=== PATIENT | female | born 1950 | race Caucasian/White ===

== ENCOUNTER 2022-01-19 11:32 | Emergency (ER) | payer SELFPAY ==
[2022-01-19 11:41] VITALS: BP 125/80; PULSE 96; RESP 18; TEMP 98.5
--- NOTE | 2022-01-19 12:22 | ED ---
URI HPI - General Chief Complaint: Upper Respiratory Infection Stated Complaint: Cough Time Seen by Provider: 01/19/22 11:50 Source: patient, RN notes reviewed Mode of arrival: ambulatory Limitations: no limitations - History of Present Illness Initial Comments: CC 71-year-old female who presents to the emergency department for upper respiratory infection. For 4 days, she has had a cough and congestion. Denies any shortness of breath or fevers. Sinus sick as well, however his symptoms are more severe. Patient states that the cough is keeping her awake at night, and she really just wants medication to help with this. MD Complaint: cough Onset/Timin -: days(s) - Related Data Previous Rx's Medication Instructions Recorded Benzonatate [Tessalon Perles] 100 mg PO TID PRN #30 capsule 01/19/22 CHLORPHEN-HYDROcod 8-10mg/5ml 5 ml PO Q12HR PRN #60 ml 01/19/22 [Tussionex] Allergies Allergy/AdvReac Type Severity Reaction Status Date / Time Sulfa (Sulfonamide Allergy Rash/Hives Verified 01/19/22 11:37 Antibiotics) Review of Systems ROS Statement: Those systems with pertinent positive or pertinent negative responses have been documented in the HPI. ROS Other: All systems not noted in ROS Statement are negative. Constitutional: Denies: fever, chills ENT: Reports: congestion. Denies: ear pain, throat pain Respiratory: Reports: cough. Denies: dyspnea Cardiovascular: Denies: chest pain Gastrointestinal: Denies: abdominal pain, nausea, vomiting, diarrhea Genitourinary: Denies: urgency, dysuria Skin: Denies: rash Neurological: Denies: headache Past Medical History Past Medical History: No Reported History History of Any Multi-Drug Resistant Organisms: None Reported Past Surgical History: Joint Replacement Additional Past Surgical History / Comment(s): B shoulder Past Psychological History: No Psychological Hx Reported Smoking Status: Never smoker Past Alcohol Use History: Occasional Past Drug Use History: None Reported General Exam Limitations: no limitations Course Vital Signs 01/19/22 11:38 Temperature 98.5 F Pulse Rate 96 Respiratory 18 Rate Blood Pressure 125/80 O2 Sat by Pulse 99 Oximetry Medical Decision Making - Medical Decision Making This is a 22-year-old female who presents emergency department for an upper respiratory infection. Cepheid testing obtained, the patient tested positive for influenza A. The patient is outside of the window where she can be treated with Tamiflu. Patient given a prescription for Tessalon Perles and Tussionex, to help with her coughing. As the patient only take Tussionex at night, as it will cause drowsiness. She can take Tessalon pearls throughout the day as needed for coughing. She is otherwise advised to continue symptomatic management, such as [id number]-[id number] cold medicine, oral fluids, hydration. Imaging was not obtained, as the patient's lungs were clear to auscultation. Return precautions reviewed in depth, the patient is instructed to return to the emergency department with any new, worsening, or concerning symptoms. Patient verbalized understanding. This case was discussed in detail with the attending ED physician. Presentation, findings, and treatment plan discussed in detail as well. - Lab Data Lab Results 01/19/22 Range/Units 12:21 Influenza Type A (PCR) Detected A (Not Detectd) Influenza Type B (PCR) Not Detected (Not Detectd) RSV (PCR) Not Detected (Not Detectd) SARS-CoV-2 (PCR) Not Detected (Not Detectd) Disposition Clinical Impression: Influenza A Disposition: HOME SELF-CARE Instructions (If sedation given, give patient instructions): Influenza (ED) Additional Instructions: Return to the emergency department if your symptoms worsen, including but not limited to, the development of unresolving fevers, shortness of breath, or an uncontrollable cough. Only take the Tussionex at night until you know how it will affect you, and avoid driving or operating machinery while taking this. Follow up with your PCP in 1-2 days. Prescriptions: Benzonatate [Tessalon Perles] 100 mg PO TID PRN #30 capsule PRN Reason: Cough CHLORPHEN-HYDROcod 8-10mg/5ml [Tussionex] 5 ml PO Q12HR PRN #60 ml PRN Reason: Cough Is patient prescribed a controlled substance at d/c from ED?: Yes If prescribed controlled substance>3 days was MAPS reviewed?: Yes Referrals: Sybil Joseph MD [Primary Care Provider] - 1-2 days
[2022-01-19 13:08] LABS: Influenza A Detected (Not Detectd); Influenza B Not Detected (Not Detectd)
== END 2022-01-19 13:41 | disposition home or self-care (01) ==
LOC: EC 11:32
DX: J10.1 Influenza due to other identified influenza virus with other respiratory manifestations (principal); Z20.822 Contact with and (suspected) exposure to COVID-19
CPT/HCPCS: 87636; 99283

== ENCOUNTER 2023-06-01 06:37 | Emergency (ER) | payer MEDICARE, OTHER ==
[2023-06-01 06:49] VITALS: BP 125/73; PULSE 80; RESP 16; TEMP 98.1
[2023-06-01] MEDS ORDERED: methylPREDNISolone ACETATE 80 MG/ML 1 ML VIAL IM STA (07:22)
--- NOTE | 2023-06-01 07:32 | ED ---
Skin/Abscess/FB HPI - General Chief complaint: Skin/Abscess/Foreign Body Stated complaint: Facial Swelling and redness Time Seen by Provider: 06/01/23 07:01 Source: patient, RN notes reviewed Mode of arrival: ambulatory Limitations: no limitations - History of Present Illness Initial comments: Patient is a pleasant 73-year-old female presenting to the emergency room with complaints of redness and mild swelling to her face which began shortly after wiping sweat off of her face with a paper towel was she was outside yesterday and worsened after the application of Tinactin to her face. She reports a severe burning sensation after applying the Tinactin and an increase in swelling particularly to the left lower cheek region. She denies any difficulty in breathing, chest pain, scratchy/she throat, rashes to any other location, fevers or chills. She has no significant past medical history and does not take any medications on a regular basis. - Related Data Previous Rx's Medication Instructions Recorded Benzonatate [Tessalon Perles] 100 mg PO TID PRN #30 capsule 01/19/22 CHLORPHEN-HYDROcod 8-10mg/5ml 5 ml PO Q12HR PRN #60 ml 01/19/22 [Tussionex] Allergies Allergy/AdvReac Type Severity Reaction Status Date / Time Sulfa (Sulfonamide Allergy Rash/Hives Verified 01/19/22 11:37 Antibiotics) Review of Systems ROS Statement: Those systems with pertinent positive or pertinent negative responses have been documented in the HPI. ROS Other: All systems not noted in ROS Statement are negative. Past Medical History Past Medical History: No Reported History History of Any Multi-Drug Resistant Organisms: None Reported Past Surgical History: Joint Replacement Additional Past Surgical History / Comment(s): B shoulder Past Psychological History: No Psychological Hx Reported Smoking Status: Never smoker Past Alcohol Use History: Occasional Past Drug Use History: None Reported General Exam Limitations: no limitations General appearance: alert, in no apparent distress Head exam: Present: atraumatic, normocephalic Eye exam: Present: normal appearance, PERRL, EOMI. Absent: scleral icterus, conjunctival injection, nystagmus, periorbital swelling ENT exam: Present: other (Bilateral cheeks with diffuse erythema and radiating downwards towards outer aspects of mouth without involvement of the oral mucosa or lips. No vesicles or distinct lesions. Mild swelling of the lower cheek line on the left noted.) Expanded Ear exam: Present: normal external inspection Mouth exam: Present: normal external inspection Teeth exam: Present: normal inspection Throat exam: normal inspection Neck exam: Present: normal inspection, full ROM. Absent: tenderness, lymphadenopathy Respiratory exam: Absent: respiratory distress, accessory muscle use Cardiovascular Exam: Present: regular rate Extremities exam: Present: normal inspection. Absent: pedal edema, joint swelling Back exam: Present: normal inspection, full ROM Neurological exam: Present: alert, oriented X3, CN II-XII intact Psychiatric exam: Present: normal affect, normal mood Skin exam: Present: warm, dry, intact, erythema (As above) Course Vital Signs 06/01/23 06:45 Temperature 98.1 F Pulse Rate 80 Respiratory 16 Rate Blood Pressure 125/73 O2 Sat by Pulse 98 Oximetry Medical Decision Making - Medical Decision Making Was pt. sent in by a medical professional or institution (, PA, FEED WEIGHER, urgent care, hospital, or [facility]...) When possible be specific @ -No Did you speak to anyone other than the patient for history (EMS, parent, family, police, friend...)? What history was obtained from this source @ -No Did you review nursing and triage notes (agree or disagree)? Why? @ -I reviewed and agree with nursing and triage notes Were old charts reviewed (outside hosp., previous admission, EMS record, old EKG, old radiological studies, urgent care reports/EKG's, [facility] records)? Report findings @ -No old charts were reviewed Differential Diagnosis (chest pain, altered mental status, abdominal pain women, abdominal pain men, vaginal bleeding, weakness, fever, dyspnea, syncope, headache, dizziness, GI bleed, back pain, seizure, CVA, palpatations, mental health, musculoskeletal)? @ -Differential Rash: Contact dermatitis, allergic reaction, petechial rash, herpes zoster, urticaria, MRSA infection, cellulitis, erythema multiforme a, tinea corpus, impetigo, and, insect bite, atopic dermatitis, this is not meant to be an all-inclusive list. EKG interpreted by me (3pts min.). @ -None done X-rays interpreted by me (1pt min.). @ -None done CT interpreted by me (1pt min.). @ -None done U/S interpreted by me (1pt. min.). @ -None done What testing was considered but not performed or refused? (CT, X-rays, U/S, labs)? Why? @ -None What meds were considered but not given or refused? Why? @ -None Did you discuss the management of the patient with other professionals (professionals i.e. , PA, FEED WEIGHER, lab, RT, psych nurse, certified social workers in health care, cashier gambling, teacher, strike warfare/missile systems officer, geriatric case manager)? Give summary @ -No Was smoking cessation discussed for >3mins.? @ -No Was critical care preformed (if so, how long)? @ -No Were there social determinants of health that impacted care today? How? (Homelessness, low income, unemployed, alcoholism, drug addiction, transportation, low edu. Level, literacy, decrease access to med. care, shelter, rehab)? @ -No Was there de-escalation of care discussed even if they declined (Discuss DNR or withdrawal of care, Hospice)? DNR status @ -No What co-morbidities impacted this encounter? (DM, HTN, Smoking, COPD, CAD, Cancer, CVA, ARF, Chemo, Hep., AIDS, mental health diagnosis, sleep apnea, morbid obesity)? @ -None Was patient admitted / discharged? Hospital course, mention meds given and route, prescriptions, significant lab abnormalities, going to OR and other pertinent info. @ -73-year-old female presenting to the emergency room with rash to bilateral cheeks radiating downwards towards mouth but not involving mouth without any associated symptoms. Worsen after tonight and application. Symptoms consistent with contact dermatitis along with potential ALLERGIC dermatitis due to tenonectomy will give dose of Depo-Medrol now and advised to utilize glmn-ugy-bkicibx hydrocortisone cream and keep skin clean and dry. No indication for any diagnostic imaging, laboratory studies or further medication administration. No indication for any continued medication at home with the exception of tcdr-tqf-uxhelhq topical application of hydrocortisone cream as above and as needed. Questions and concerns answered. Return parameters to the emergency room discussed at length. Will discharge home in stable condition after Depo-Medrol injection advising [id number]-[id number] treatment for contact dermatitis to the face and follow-up with primary care provider. Undiagnosed new problem with uncertain prognosis? @ -No Drug Therapy requiring intensive monitoring for toxicity (Heparin, Nitro, Insulin, Cardizem)? @ -No Were any procedures done? @ -No Diagnosis/symptom? @ -Contact dermatitis Acute, or Chronic, or Acute on Chronic? @ -Acute Uncomplicated (without systemic symptoms) or Complicated (systemic symptoms)? @ -Uncomplicated Side effects of treatment? @ -No Exacerbation, Progression, or Severe Exacerbation? @ -No Poses a threat to life or bodily function? How? (Chest pain, [place], [place], pneumonia, PE, COPD, DKA, ARF, appy, cholecystitis, CVA, Diverticulitis, Homicidal, Suicidal, threat to staff... and all critical care pts) @ -No Case discussed with Dr. Diaz Disposition Clinical Impression: Contact dermatitis Disposition: HOME SELF-CARE Condition: Stable Instructions (If sedation given, give patient instructions): Contact Dermatitis (ED) Additional Instructions: May utilize neze-xwc-ftqhhws hydrocortisone cream to rash as needed sparingly. Gentle soap and hot water to wash skin and keep dry. Please follow-up with your primary care provider. Please return to the emergency Department if symptoms worsen. Is patient prescribed a controlled substance at d/c from ED?: No Referrals: None,Stated [Primary Care Provider] - 1-2 days Time of Disposition: 07:33
== END 2023-06-01 07:55 | disposition home or self-care (01) ==
LOC: EC 06:37
DX: L25.9 Unspecified contact dermatitis, unspecified cause (principal); Z88.2 Allergy status to sulfonamides
CPT/HCPCS: 99283; 96372; J1040

== ENCOUNTER 2023-06-05 07:01 | Emergency (ER) | payer MEDICARE ==
[2023-06-05 07:15] VITALS: TEMP 98
[2023-06-05] MEDS ORDERED: predniSONE 20 MG TAB PO STA (07:57)
[2023-06-05] MEDS ORDERED: hydrOXYzine HCL 25 MG TAB PO STA (07:57)
--- NOTE | 2023-06-05 08:02 | ED ---
General Adult HPI - General Chief complaint: Skin/Abscess/Foreign Body Stated complaint: rash Time Seen by Provider: 06/05/23 07:15 Source: patient Mode of arrival: ambulatory Limitations: no limitations - History of Present Illness Initial comments: 73-year-old female presents to the emergency department for rash. Patient was seen in the emergency department on the seventh with similar complaint. Started after she was working in her yard. She placed Tinactin on the rash on her face. This made the rash worse. She was seen in the emergency department and discharged home with hydrocortisone cream. Patient states that she hasn't been using it because of ye or rash. She denies any new exposures. Does admit that she has been exposed to think her backyard. Rashes nonvesicular. Denies any fevers. No difficulty breathing. Rash only affects her neck and forearms. No other alleviating, credit administration officer modifying factors - Related Data Previous Rx's Medication Instructions Recorded Benzonatate [Tessalon Perles] 100 mg PO TID PRN #30 capsule 01/19/22 CHLORPHEN-HYDROcod 8-10mg/5ml 5 ml PO Q12HR PRN #60 ml 01/19/22 [Tussionex] hydrOXYzine HCL 25 mg PO Q8HR PRN #25 tab 06/05/23 predniSONE [Deltasone] 20 mg PO BID #10 tab 06/05/23 Allergies Allergy/AdvReac Type Severity Reaction Status Date / Time Sulfa (Sulfonamide Allergy Rash/Hives Verified 06/05/23 07:15 Antibiotics) Review of Systems ROS Statement: Those systems with pertinent positive or pertinent negative responses have been documented in the HPI. ROS Other: All systems not noted in ROS Statement are negative. Past Medical History Past Medical History: No Reported History History of Any Multi-Drug Resistant Organisms: None Reported Past Surgical History: Joint Replacement Additional Past Surgical History / Comment(s): B shoulder Past Psychological History: No Psychological Hx Reported Smoking Status: Never smoker Past Alcohol Use History: Occasional Past Drug Use History: None Reported General Exam Limitations: no limitations General appearance: alert, in no apparent distress Head exam: Present: atraumatic, normocephalic, normal inspection Skin exam: Present: rash (posterior forearms and anterior neck - non vesicular) Course Vital Signs 06/05/23 06/05/23 07:13 08:18 Temperature 98 F 98 F Pulse Rate 88 81 Respiratory 20 16 Rate Blood Pressure 139/78 129/74 O2 Sat by Pulse 97 98 Oximetry Medical Decision Making - Medical Decision Making Was pt. sent in by a medical professional or institution (ALLISON Barajas, LAY OUT MAKER, urgent care, hospital, or assisted...) When possible be specific @ -No Did you speak to anyone other than the patient for history (EMS, parent, family, police, friend...)? What history was obtained from this source @ -No Did you review nursing and triage notes (agree or disagree)? Why? @ -I reviewed and agree with nursing and triage notes Were old charts reviewed (outside hosp., previous admission, EMS record, old EKG, old radiological studies, urgent care reports/EKG's, assisted records)? Report findings @ -No old charts were reviewed Differential Diagnosis (chest pain, altered mental status, abdominal pain women, abdominal pain men, vaginal bleeding, weakness, fever, dyspnea, syncope, headache, dizziness, GI bleed, back pain, seizure, CVA, palpatations, mental health, musculoskeletal)? @ -contact dermatitis, heat rash, shingles, poison jacob, allergic reaction EKG interpreted by me (3pts min.). @ -Not done X-rays interpreted by me (1pt min.). @ -None done CT interpreted by me (1pt min.). @ -None done U/S interpreted by me (1pt. min.). @ -None done What testing was considered but not performed or refused? (CT, X-rays, U/S, labs)? Why? @ -None What meds were considered but not given or refused? Why? @ -None Did you discuss the management of the patient with other professionals (professionals i.e. ALLISON Barajas, LAY OUT MAKER, lab, RT, psych nurse, healthcare social worker, rehabilitation tech, teacher, public records officer, case filler)? Give summary @ -No Was smoking cessation discussed for >3mins.? @ -No Was critical care preformed (if so, how long)? @ -No Were there social determinants of health that impacted care today? How? (Homelessness, low income, unemployed, alcoholism, drug addiction, transpo rtation, low edu. Level, literacy, decrease access to med. care, fdc, rehab)? @ -No Was there de-escalation of care discussed even if they declined (Discuss DNR or withdrawal of care, Hospice)? DNR status @ -No What co-morbidities impacted this encounter? (DM, HTN, Smoking, COPD, CAD, Cancer, CVA, ARF, Chemo, Hep., AIDS, mental health diagnosis, sleep apnea, morbid obesity)? @ -None Was patient admitted / discharged? Hospital course, mention meds given and route, prescriptions, significant lab abnormalities, going to OR and other pertinent info. @ -Upon arrival patient was placed into room 29. A thorough history and physical exam was performed. Rash is consistent with contact dermatitis, possibly from the sun as this is an sun exposed areas. Patient is to wear dry clothing, keep cool. May place I do cortisone to the site. She will be placed on oral steroids and hydroxyzine. Take the medications as directed and follow- up with her doctor. Return for any new or worsening symptoms her patient was agreeable discharged in stable condition Undiagnosed new problem with uncertain prognosis? @ -No Drug Therapy requiring intensive monitoring for toxicity (Heparin, Nitro, Insulin, Cardizem)? @ -No Were any procedures done? @ -No Diagnosis/symptom? @ -contact dermatitis Acute, or Chronic, or Acute on Chronic? @ -acute Uncomplicated (without systemic symptoms) or Complicated (systemic symptoms)? @ -uncomplicated Side effects of treatment? @ -No Exacerbation, Progression, or Severe Exacerbation? @ -No Poses a threat to life or bodily function? How? (Chest pain, [place], [place], pneumonia, PE, COPD, DKA, ARF, appy, cholecystitis, CVA, Diverticulitis, Homicidal, Suicidal, threat to staff... and all critical care pts) @ -No Disposition Clinical Impression: Contact dermatitis Disposition: HOME SELF-CARE Condition: Stable Instructions (If sedation given, give patient instructions): Contact Dermatitis (ED) Additional Instructions: Keep the area clean and dry. Stay out of the sun. Start taking the prednisone tomorrow. You may take the hydroxyzine up to 3 times a day. Use your regular the soap however no other products to the site unless it is hydrocortisone cream Prescriptions: predniSONE [Deltasone] 20 mg PO BID #10 tab hydrOXYzine HCL 25 mg PO Q8HR PRN #25 tab PRN Reason: Itching Is patient prescribed a controlled substance at d/c from ED?: No Referrals: None,Stated [Primary Care Provider] - 1-2 days Time of Disposition: 08:01
[2023-06-05 08:20] VITALS: BP 129/74; PULSE 81; RESP 16
== END 2023-06-05 08:20 | disposition home or self-care (01) ==
LOC: EC 07:01
DX: L25.9 Unspecified contact dermatitis, unspecified cause (principal); Z88.2 Allergy status to sulfonamides
CPT/HCPCS: 99282; J7512